=== PATIENT | male | born 1945 | race Caucasian/White ===

== ENCOUNTER 2020-10-06 06:43 | Emergency (ER) | payer MEDICARE, BC ==
[~2020-10-06] VITALS: Ht 193 cm; Wt 120.2 kg
[2020-10-06 07:21] LABS: ABSOLUTE EOSINOPHILS 0.2 thou/uL (0.0-0.7); ABSOLUTE LYMPHOCYTES 1.2 thou/uL (0.8-5.3); ABSOLUTE MONOCYTES 0.4 thou/uL (0.0-1.2); ABSOLUTE NEUTROPHILS 2.9 thou/uL (1.6-8.1); BASOPHILS 0.4 %; EOSINOPHILS 4.1 %; HEMOGLOBIN 15.2 gm/dL (14.0-18.0); LYMPHOCYTES 25.9 %; MCH 32.6 pg (26.0-34.0); MCHC 35.3 g/dL (28.0-37.0); MCV 92.4 fL (80.0-100.0); MONOCYTES 7.9 %; MPV 6.9 fl. (7.2-11.1); NUCLEATED RBCS 0 /100WBC; PLATELET COUNT* 111 thou/uL (150-400); POLYS 61.7 %; RBC 4.65 mil/uL (4.50-6.00); RDW-CV 13.9 % (10.5-14.5); WBC 4.6 thou/uL (4.0-11.0)
[2020-10-06] MEDS ORDERED: NEURONTIN100 MG PO (07:23)
[2020-10-06] MEDS ORDERED: COZAAR100 MG PO (07:24)
[2020-10-06] MEDS ORDERED: FISH OIL 1,0001 EAC9 PO (07:24)
[2020-10-06] MEDS ORDERED: GLIMEPIRIDE1 MG PO (07:24)
[2020-10-06] MEDS ORDERED: NORVASC5 MG PO (07:24)
[2020-10-06] MEDS ORDERED: PRAVACHOL 20 MG20 M1 PO (07:25)
[2020-10-06 07:47] LABS: CALCIUM 8.2 mg/dL (8.5-10.1); CREATININE 0.9 mg/dL (0.6-1.3); POTASSIUM 3.9 mmol/L (3.5-5.1)
[2020-10-06 07:57] LABS: ALBUMIN 3.4 g/dL (3.4-5.0); TOTAL BILIRUBIN 0.5 mg/dL (<0.1-1.0)
[2020-10-06] MEDS ORDERED: ACYCLOVIR 800800 MG PO (08:46)
[2020-10-06] MEDS ORDERED: HYDROCODON-ACE1 EAC7 PO (08:46)
[2020-10-06] MEDS ORDERED: PREDNISONE 10 M10 M1 PO (08:46)
[2020-10-06 08:56] VITALS: BP 150/65
--- NOTE | 2020-10-06 14:40 | EKG ---
[place] [address] ELECTROCARDIOGRAM REPORT Name: CHRISTOPHER ANDERSON Room: [facility]#: [id number] Admission: 10/06/20 Attend Phys: Discharge: 10/06/20 Date of : 41 Date of Service: 10/06/20 0649 Report #: [id number] THIS REPORT FOR: //name// [facility] ED Test Date: 2020-10-06 Test Time: 06:49:26 Pat Name: CHRISTOPHER ANDERSON Department: Room: Gender: Coding Quality Analyst: : 1945 Requested By: Rito Kyle Order Number: [id number] MD: Syed Byers Measurements Intervals [place] Rate: 69 P: 75 SC: 150 QRS: -72 QRSD: 109 T: 65 QT: 420 QTc: 450 Interpretive Statements Sinus rhythm 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
== END 2020-10-06 08:57 | disposition home or self-care (01) ==
LOC: M.ERS 06:43
PROVIDERS: Emergency Medicine Emergency Medical Services
DX: R07.89 Other chest pain (principal); B02.9 Zoster without complications; I10 Essential (primary) hypertension; E11.9 Type 2 diabetes mellitus without complications; Z88.0 Allergy status to penicillin; Z88.5 Allergy status to narcotic agent